=== PATIENT | female | born 1950 | race Caucasian/White ===

== ENCOUNTER 2016-07-26 22:06 | Observation (INO) | payer MEDICARE, OTHER ==
[~2016-07-26] VITALS: Ht 162.6 cm; Wt 64.6 kg
[~2016-07-26 22:06] MED LIST: DIPH25 PO; GLEE400T2 PO; LEVO100T4 PO; PARO20 PO; PRED10 PO; RANI150 PO; ZOLP5TAB3 PO
--- NOTE | 2016-07-26 22:27 | PD ---
HPI Chief Complaint: Chest Pain Time Seen by Provider: 22:24 Travel History International Travel<30 days: No Contact w/Intl Traveler<30days: No Traveled to known affect area: No History of Present Illness HPI 66-year-old female presents to the emergency department by private transportation for complaint of retrosternal chest pressure radiating into the jaw/gums shoulder back and left arm intermittently in intensity since 8 PM. Presently discomfort is 0/10 intensity; 8/10 at worst. Patient denies any history of cardiac disease. Patient does take medication for hypertension. Patient has previous dyslipidemia but is on no medications for dyslipidemia this time. Patient denies diabetes. Patient continues to smoke cigarettes. Patient has family history of cardiac disease but not reportedly premature onset. 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 [facility] Past Medical History Narrative Medical Gastrointestinal stromal tumor and liver metastasis, chemotherapy, dyslipidemia , hypertension, migraines, hypothyroidism; appendectomy cholecystectomy; alcohol use tobacco use; nursing notes reviewed Cancer: Yes (GASTRO INTESTINAL STROMAL TUMOR AND LIVER) High Cholesterol: Yes Chemotherapy: Yes Hypertension: Yes Migraines: Yes Thyroid Disease: Yes Past Surgical History Appendectomy: Yes Cholecystectomy: Yes Social History Alcohol Use: Yes Tobacco Use: Yes Substance Use: No Allergies-Medications (Allergen,Severity, Reaction): Coded Allergies: Benazepril (Verified Allergy, Severe, ANGIOEDEMA, 07/26/16) Sulfa (Verified Allergy, Severe, Anaphylaxis, 07/26/16) Reported Meds & Prescriptions Reported Meds & Active Scripts Active Reported Aspirin 81 Mg Chew 162 Mg CHEW ONCE Norvasc (Amlodipine Besylate) 10 Mg Tab 10 Mg PO DAILY Paxil (Paroxetine HCl) 20 Mg Tab 20 Mg PO DAILY Synthroid (Levothyroxine Sodium) 100 Mcg Tab 105 Mcg PO DAILY Review of Systems Except as stated in HPI: all other systems reviewed are Neg General / Constitutional: No: Fever, Chills HENT: No: Congestion Cardiovascular: Positive: Chest Pain or Discomfort Respiratory: No: Shortness of Breath Gastrointestinal: No: Vomiting, Abdominal Pain Genitourinary: No: Flank Pain Musculoskeletal: No: Myalgias, Arthralgias, Edema Skin: No Rash Neurologic: No: Weakness Psychiatric: No: Anxiety Hematologic/Lymphatic: No: Lymph Node Enlargement Physical Exam Narrative GENERAL: Well-developed well-nourished female in no acute distress no respiratory distress SKIN: Warm and dry. HEAD: Normocephalic. EYES: No scleral icterus. No injection or drainage. NECK: Supple, trachea midline. No JVD or lymphadenopathy. CARDIOVASCULAR: Regular rate and rhythm without murmurs, gallops, or rubs. Chest wall: Nontender to direct palpation RESPIRATORY: Breath sounds equal bilaterally. No accessory muscle use. GASTROINTESTINAL: Abdomen soft, non-tender, nondistended. MUSCULOSKELETAL: No cyanosis, or edema. Bilateral radial and dorsalis pedis pulses 2+ to palpation BACK: Nontender without obvious deformity. No CVA tenderness. Data Data Last Documented VS Vital Signs Date Time Temp Pulse Resp B/P Pulse Ox O2 Delivery O2 Flow Rate FiO2 07/26/16 22:58 74 20 129/57 98 Nasal Cannula 1 Orders Electrocardiogram (07/26/16 22:24) Ckmb (Isoenzyme) Profile (07/26/16 22:24) Complete Blood Count With Diff (07/26/16 22:24) Comprehensive Metabolic Panel (07/26/16 22:24) Magnesium (Mg) (07/26/16 22:24) Prothrombin Time / Inr (Pt) (07/26/16 22:24) Act Partial Throm Time (Ptt) (07/26/16 22:24) Troponin I (07/26/16 22:24) Lipase (07/26/16 22:24) Chest, Single Ap (07/26/16 22:24) Ecg Monitoring (07/26/16 22:24) Bilateral Bp Monitoring (07/26/16 22:24) Iv Access Insert/Monitor (07/26/16 22:24) Oximetry (07/26/16 22:24) Oxygen Administration (07/26/16 22:24) Aspirin Chew (Aspirin Chew) (07/26/16 22:30) Sodium Chloride 0.9% Flush (Ns Flush) (07/26/16 22:30) Nitroglycerin Sl (Nitrostat Sl) (07/26/16 22:30) Sodium Chlor 0.9% 1000 Ml Inj (Ns 1000 M (07/26/16 22:30) Ct Pulmonary Angiogram (07/26/16 ) Iohexol 350 Inj (Omnipaque 350 Inj) (07/26/16 23:59) Labs Laboratory Tests Test 07/26/16 22:25 White Blood Count 11.6 TH/MM3 Red Blood Count 4.02 MIL/MM3 Hemoglobin 12.1 GM/DL Hematocrit 36.1 % Mean Corpuscular Volume 89.6 FL Mean Corpuscular Hemoglobin 30.1 PG Mean Corpuscular Hemoglobin 33.5 % Concent Red Cell Distribution Width 13.2 % Platelet Count 396 TH/MM3 Mean Platelet Volume 7.7 FL Neutrophils (%) (Auto) 67.0 % Lymphocytes (%) (Auto) 16.6 % Monocytes (%) (Auto) 10.0 % Eosinophils (%) (Auto) 6.1 % Basophils (%) (Auto) 0.3 % Neutrophils # (Auto) 7.8 TH/MM3 Lymphocytes # (Auto) 1.9 TH/MM3 Monocytes # (Auto) 1.2 TH/MM3 Eosinophils # (Auto) 0.7 TH/MM3 Basophils # (Auto) 0.0 TH/MM3 CBC Comment DIFF FINAL Differential Comment Prothrombin Time 10.7 SEC Prothromb Time International 1.0 RATIO Ratio Activated Partial 29.0 SEC Thromboplast Time Sodium Level 142 MEQ/L Potassium Level 3.9 MEQ/L Chloride Level 104 MEQ/L Carbon Dioxide Level 28.6 MEQ/L Anion Gap 9 MEQ/L Blood Urea Nitrogen 22 MG/DL Creatinine 1.20 MG/DL Estimat Glomerular Filtration 45 ML/MIN Rate Random Glucose 126 MG/DL Calcium Level 8.5 MG/DL Magnesium Level 2.0 MG/DL Total Bilirubin 0.2 MG/DL Aspartate Amino Transf 33 U/L (AST/SGOT) Alanine Aminotransferase 31 U/L (ALT/SGPT) Alkaline Phosphatase 222 U/L Total Creatine Kinase 44 U/L Troponin I 0.02 NG/ML Total Protein 7.0 GM/DL Albumin 2.5 GM/DL Lipase 195 U/L [facility] Medical Decision Making Medical Screen Exam Complete: Yes Emergency Medical Condition: Yes Medical Record Reviewed: Yes Interpretation(s) cxr: nad ekg: Normal sinus rhythm rate [address] elevation nonspecific septal T wave changes mild inversion V1 V2 Laboratory Tests Test 07/26/16 22:25 White Blood Count 11.6 TH/MM3 Red Blood Count 4.02 MIL/MM3 Hemoglobin 12.1 GM/DL Hematocrit 36.1 % Mean Corpuscular Volume 89.6 FL Mean Corpuscular Hemoglobin 30.1 PG Mean Corpuscular Hemoglobin 33.5 % Concent Red Cell Distribution Width 13.2 % Platelet Count 396 TH/MM3 Mean Platelet Volume 7.7 FL Neutrophils (%) (Auto) 67.0 % Lymphocytes (%) (Auto) 16.6 % Monocytes (%) (Auto) 10.0 % Eosinophils (%) (Auto) 6.1 % Basophils (%) (Auto) 0.3 % Neutrophils # (Auto) 7.8 TH/MM3 Lymphocytes # (Auto) 1.9 TH/MM3 Monocytes # (Auto) 1.2 TH/MM3 Eosinophils # (Auto) 0.7 TH/MM3 Basophils # (Auto) 0.0 TH/MM3 CBC Comment DIFF FINAL Differential Comment Prothrombin Time 10.7 SEC Prothromb Time International 1.0 RATIO Ratio Activated Partial 29.0 SEC Thromboplast Time Sodium Level 142 MEQ/L Potassium Level 3.9 MEQ/L Chloride Level 104 MEQ/L Carbon Dioxide Level 28.6 MEQ/L Anion Gap 9 MEQ/L Blood Urea Nitrogen 22 MG/DL Creatinine 1.20 MG/DL Estimat Glomerular Filtration 45 ML/MIN Rate Random Glucose 126 MG/DL Calcium Level 8.5 MG/DL Magnesium Level 2.0 MG/DL Total Bilirubin 0.2 MG/DL Aspartate Amino Transf 33 U/L (AST/SGOT) Alanine Aminotransferase 31 U/L (ALT/SGPT) Alkaline Phosphatase 222 U/L Total Creatine Kinase 44 U/L Troponin I 0.02 NG/ML Total Protein 7.0 GM/DL Albumin 2.5 GM/DL Lipase 195 U/L CT pulmonary angiogram: CONCLUSION: 1. Severe emphysema without infiltrate. 2. Left basilar atelectasis/scarring. 3. No evidence for pulmonary embolism. 4. Multiple masses throughout the liver concerning for metastatic disease. Nonemergent contrasted CT of the abdomen/pelvis recommended. Dano Sutton MD on July 27, 2016 at 0:11 Board Certified Radiologist. This report was verified electronically. Differential Diagnosis Chest pain, ACS, myocardial infarction, PE, esophageal spasm, peptic ulcer disease, biliary colic, also to consider hypertensive urgency, dissection, aneurysm, musculoskeletal pain Narrative Course Patient placed on manager monitoring IV access obtained EKG performed which reveals no acute ST elevation or injury pattern change; patient administered aspirin 162 mg by mouth as well as sublingual nitroglycerin Patient voicing no complaint of chest pain at this time Patient aware of lab results and states he had chest pain return as severe as 8/ 10 intensity but currently again 0/10 in intensity; patient recommendation for CT pulmonary angiogram as new onset CP after road travel and off chemotherpy regimen since 05/2016with observation admission for chest pain center protocol if study is negative. CT pulmonary angiogram negative for PE shows evidence of changes consistent with COPD and metastatic disease to the liver with recommendation for outpatient imaging of the liver for metastatic disease which patient has artery aware of this diagnosis; patient is agreeable to observation stay for chest pain center protocol call placed to medicine service. Cardiac risk: female age 66, tobacco use, htn, dyslipidemia; also family history cad-mother age 70 ; patient is not diabetic Procedures EKG Prior to Arrival: No Physician Communication Physician Communication call placed to [facility] service --discussed with for [facility] Diagnosis Primary Impression: Chest pain Qualified Code: R07.2 - Precordial pain Admitting Information Admitting Physician Requests: Observation Courtney Ramirez MD Jul 26, 2016 22:27
[2016-07-26] MEDS ORDERED: ASPIRIN 81 MG CHEW TAB PO ONE (22:30)
[2016-07-26] MEDS ORDERED: SODIUM CHLORIDE 0.9% FLUSH 5 ML FLUSH IVF PRN (22:30)
[2016-07-26] MEDS ORDERED: SODIUM CHLOR 0.9% 1000 ML INJ 1,000 ML IV SCH (22:30)
[2016-07-26] MEDS: NITROGLYCERIN 0.4 MG SL 25 TABS/BTL SL SCH ×3 (22:38→23:01)
--- NOTE | 2016-07-26 22:39 | RADHPO ---
EXAM DATE/TIME: 07/26/2016 22:26 [facility] COMPARISON: No previous studies available for comparison. INDICATIONS : Chest discomfort and pressure. MEDICAL HISTORY : None. SURGICAL HISTORY : None. ENCOUNTER: Initial ACUITY: 1 day PAIN SCORE: 07/26 LOCATION: Bilateral chest FINDINGS: Hyperinflation without consolidation or effusion. Aortic calcification. Heart size normal. Attenuated lung markings are present. CONCLUSION: No acute disease. Quentin Pisano MD on July 26, 2016 at 22:37 Board Certified Radiologist. This report was verified electronically.
[2016-07-26 22:40] LABS: AUTOMATED NEUTROPHIL # 7.8 TH/MM3 (1.8-7.7); BASOPHIL % 0.3 % (0.0-2.0); EOSINOPHIL # 0.7 TH/MM3 (0-0.4); EOSINOPHIL % 6.1 % (0.0-4.0); HEMATOCRIT 36.1 % (35.0-46.0); HEMO FLAGS DIFF FINAL; LYMPH % 16.6 % (9.0-44.0); LYMPHOCYTE # 1.9 TH/MM3 (1.0-4.8); MEAN CELL VOLUME 89.6 FL (80.0-100.0); MEAN CORPUSCULAR HEMOGLOBIN 30.1 PG (27.0-34.0); MEAN CORPUSCULAR HGB CONC 33.5 % (32.0-36.0); PLATELET COUNT 396 TH/MM3 (150-450); RED BLOOD COUNT 4.02 MIL/MM3 (4.00-5.30); RED CELL DISTRIBUTION WIDTH 13.2 % (11.6-17.2); WHITE BLOOD COUNT 11.6 TH/MM3 (4.0-11.0)
[2016-07-26 22:41] VITALS: BP_SYST 170; BP_SYST 183; BP_SYST 194; BP_DIAS 73; BP_DIAS 80; BP_DIAS 84; PULSE 83; PULSE 84; RESP 20; O2SAT 96; O2SAT 97
[2016-07-26 22:49] LABS: CHLORIDE 104 MEQ/L (98-107); POTASSIUM 3.9 MEQ/L (3.5-5.1); SODIUM (NA) 142 MEQ/L (136-145)
[2016-07-26 22:54] LABS: ANION GAP 9 MEQ/L (5-15); BICARBONATE 28.6 MEQ/L (21.0-32.0); BLOOD UREA NITROGEN 22 MG/DL (7-18); PROTHROMBIN TIME - PATIENT 10.7 SEC (9.8-11.6)
[2016-07-26 22:56] LABS: ALT (GPT) 31 U/L (10-53); AST (GOT) 33 U/L (15-37); GLOMERULAR FILTRATION RATE 45 ML/MIN (>89)
[2016-07-26 22:58] VITALS: BP 129/57; PULSE 74; RESP 20; O2SAT 98
[2016-07-26 22:58] LABS: TOTAL BILIRUBIN ADULT 0.2 MG/DL (0.2-1.0)
[2016-07-26 22:59] LABS: ALKALINE PHOSPHATASE 222 U/L (45-117)
[2016-07-26] MEDS ORDERED: PAXI20TA PO (23:06)
[2016-07-26] MEDS ORDERED: AMLO10 PO (23:06)
[2016-07-26] MEDS ORDERED: ASPI81CH CHEW (23:06)
[2016-07-26] MEDS ORDERED: LEVO.1 PO (23:06)
[2016-07-26 23:17] LABS: CREATINE KINASE 44 U/L (26-192)
[2016-07-26] MEDS ORDERED: IOHEXOL 350 MG/ML 10 ML VIAL (for RAD DIAG) IV ONE (23:59)
[2016-07-27] VITALS (8 sets, daily range): BP systolic 152–187; BP diastolic 40–89; PULSE 62–77; RESP 20; TEMP 96.4–97.5; O2SAT 94–98
--- NOTE | 2016-07-27 00:16 | RADHPO ---
EXAM DATE/TIME: 07/26/2016 23:54 [facility] COMPARISON: No previous studies available for comparison. INDICATIONS : Retrosternal chest pressure. Evaluate for pulmonary embolism. IV CONTRAST: 75 cc Omnipaque 350 (iohexol) IV RADIATION DOSE: 8.14 CTDIvol (mGy) MEDICAL HISTORY : Hypertension. Carcinoma, gastric. Metastatic, liver. SURGICAL HISTORY : Appendectomy. Cholecystectomy. ENCOUNTER: Initial ACUITY: 1 day PAIN SCALE: 1/10 LOCATION: chest retrosternal. TECHNIQUE: Volumetric scanning of the chest was performed using a pulmonary embolism protocol MIP images were re constructed. Using automated exposure control and adjustment of the mA and/or kV according to patien t size, radiation dose was kept as low as reasonably achievable to obtain optimal diagnostic quality images. FINDINGS: PULMONARY ARTERIES: No filling defects are seen in the pulmonary arteries through the segmental level. LUNGS: There is no consolidation or pneumothorax . No concerning pulmonary nodule is visualized. Severe emp hysema. Minimal density left lower lobe, likely atelectasis/scarring. PLEURAE: There is no pleural thickening or pleural effusion. MEDIASTINUM: There is good visualization of the great vessels of the middle mediastinum. No evidence of mediastin al or hilar adenopathy/mass. MUSCULOSKELETAL: Within normal limits for patient age. MISCELLANEOUS: The visualized upper abdominal organs demonstrate multiple low-density liver lesions. Mild prominence left adrenal gland. CONCLUSION: 1. Severe emphysema without infiltrate. 2. Left basilar atelectasis/scarring. 3. No evidence for pulmonary embolism. 4. Multiple masses throughout the liver concerning for metastatic disease. Nonemergent contrasted CT of the abdomen/pelvis recommended. Dano Sutton MD on July 27, 2016 at 0:11 Board Certified Radiologist. This report was verified electronically.
[2016-07-27] MEDS ORDERED: SODIUM CHLORIDE 0.9% FLUSH 5 ML FLUSH IVF PRN ×2 (01:15)
[2016-07-27] MEDS ORDERED: SODIUM CHLORIDE 0.9% FLUSH 5 ML FLUSH IVF SCH ×2 (09:00)
--- NOTE | 2016-07-27 11:11 | EKG ---
Date Performed: 07/27/2016 Time Performed: 04:25:12 PTAGE: 66 years EKG: Sinus rhythm with PAC(s) Borderline ECG PREVIOUS TRACING : 07/27/2016 01.11 Compared to prior tracing no significant change DOCTOR: Tono Sierra Interpretating Date/Time 07/27/2016 11:09:19
--- NOTE | 2016-07-27 11:21 | EKG ---
Date Performed: 07/27/2016 Time Performed: 01:11:10 PTAGE: 66 years EKG: Sinus rhythm with PAC(s). Prolonged QT interval Inferior/lateral T wave changes are nonspecific Borderline ECG PREVIOUS TRACING : 07/26/2016 22.04 Compared to prior tracing no significant change DOCTOR: Tono Sierra Interpretating Date/Time 07/27/2016 11:19:35
[2016-07-27] MEDS ORDERED: REGADENOSON INJ 0.4 MG/5 ML SYR IV ONE (12:36)
--- NOTE | 2016-07-27 13:10 | TR ---
Date Performed: 07/27/2016 Time Performed: 12:38:02 DOCTOR: Kraig Gauthier DRUG LIST: CLINICAL HISTORY: CHEST PAIN REASON FOR TEST: Chest pain. REASON FOR ENDING: OBSERVATION: CONCLUSION: Lexiscan stress test was performed under standard four minute protocol. Radionuclid e was injected one minute prior to ending the test. No electrocardiographic abormalities were present to suggest ischemia. Nuclear imaging and interpretation are pending. COMMENTS:
--- NOTE | 2016-07-27 13:38 | RADHPO ---
EXAM DATE/TIME: 07/27/2016 12:34 [facility] COMPARISON: No previous studies available for comparison. INDICATIONS : Retrosternal chest pain radiating to jaw and left arm. Angina. DOSE: 25.5 mCi Tc99m Myoview at stress. 8.7 mCi Tc99m Myoview at rest. 0.4 mg Lexiscan STRESS SYMPTOMS: None. EJECTION FRACTION: 49% MEDICAL HISTORY: Hypertension. Gastro intestinal stromal tumor. SURGICAL HISTORY: Appendectomy. Cholecystectomy. ENCOUNTER: Initial ACUITY: 1 day PAIN SCALE: 8/10 LOCATION: Retrosternal chest TECHNIQUE: The patient underwent pharmacologic stress with infusion of prescribed dose. Continuous ECG tracing was monitored during stress. Gated SPECT imaging was performed after stress and conventional SPECT i maging was performed at rest. The examination was performed on a SPECT/CT scanner, both attenuation and non-corrected datasets were reviewed. FINDINGS: The gated Cine loop images demonstrate mild septal hypokinesis. The left ventricular ejection fracti on is calculated at 49%. The cardiac SPECT stress and rest images demonstrate fixed defects involving the cardiac apex suggest ing LAD infarct. Clinical correlation is recommended. No reversible defect is noted to suggest isch emia. CONCLUSION: 1. Fixed defect involving the cardiac apex suggesting LAD infarct. Clinical correlation is recommen ded. 2. No reversible defect to suggest ischemia. 3. Mild septal hypokinesis. 4. Left ventricular ejection fraction equaling 49%. RISK CATEGORY: Low risk (less than 1% annual mortality rate). Domingo Hunt MD on July 27, 2016 at 13:23 Board Certified Radiologist. This report was verified electronically.
--- NOTE | 2016-07-27 13:39 | HHI.HP ---
[facility] Primary Care Physician Non-Staff Admission Diagnosis Chest pain Diagnoses: (1) Chest pain Diagnosis: Principal (2) Leukocytosis Diagnosis: Principal (3) Renal failure Diagnosis: Principal Chief Complaint: chest pain Travel History International Travel<30 Days: No Contact w/Intl Traveler <30 Da: No Traveled to Known Affected Are: No History of Present Illness 66-year-old female with metastatic cancer, hypertension, and thyroid disease presents with complaint of pressure over the left chest. She states it radiated to the gums and arms and wrapped around the back. She admits to feeling of pressure and numbness in the arms. Patient states symptoms started at 745 pm last night intermittently occurring lasting a maximum of 2 minutes, but she additionally states that each of 2 nights prior, she had an episode of pain which woke her from sleep. Rated pain a 4-5/10. Pain reoccurred at 8 AM today. Patient received 3 doses of SL nitroglycerin without relief. Admits to feeling short of breath sometimes. States she felt lightheaded and dizzy this morning, but denies any headache, dizziness, blurred vision prior to arrival. Admits to occasional cough and left ear congestion, but denies these being new symptoms. Denies any diaphoresis, abdominal pain, nausea, vomiting. Review of Systems Other ROS 10 negative unless otherwise indicated in history of present illness. Past Family Social History Past Medical History Gastrointestinal stromal tumor and liver metastasis. Patient states she last took chemotherapy pills May 2016 but is supposed to restart them soon. Sister states patient just returned from [facility]. Hypertension Hypothyroidism Migraines, although patient states she only has painless visual disturbances now. Possible history of hyperlipidemia Miscarriages Past Surgical History Appendectomy Cholecystectomy Laparotomy Reported Medications Aspirin 81 Mg Chew 162 Mg CHEW ONCE Norvasc (Amlodipine Besylate) 10 Mg Tab 10 Mg PO DAILY Paxil (Paroxetine HCl) 20 Mg Tab 20 Mg PO DAILY Synthroid (Levothyroxine Sodium) 100 Mcg Tab 105 Mcg PO DAILY Allergies: Coded Allergies: Benazepril (Verified Allergy, Severe, ANGIOEDEMA, 07/26/16) Sulfa (Verified Allergy, Severe, Anaphylaxis, 07/26/16) Family History Father and mother had bowel problems. Mother had a "partial stroke". Maternal grandmother had strokes. Social History Patient admits to rarely drinking alcohol although her sister states she drinks Scotch and wine. Patient smokes one pack per day of cigarettes. Started smoking at age of 15-18. Denies illicit drug use. Physical Exam Vital Signs Vital Signs Date Time Temp Pulse Resp B/P Pulse Ox O2 Delivery O2 Flow Rate FiO2 07/27/16 12:00 97.5 68 20 161/74 94 07/27/16 08:30 96.4 77 20 185/78 94 07/27/16 06:46 76 20 187/78 96 07/27/16 04:45 64 20 186/89 96 07/27/16 03:45 62 20 174/81 97 Nasal Cannula 2 07/27/16 02:45 64 20 163/58 98 07/27/16 01:45 68 20 152/40 95 07/27/16 00:45 72 20 182/62 94 07/26/16 23:06 20 07/26/16 22:58 74 20 129/57 98 Nasal Cannula 1 07/26/16 22:58 98 Nasal Cannula 1.00 07/26/16 22:49 20 99 Nasal Cannula 2 07/26/16 22:41 84 20 170/73 96 Nasal Cannula 1 07/26/16 22:41 83 20 183/80 97 Nasal Cannula 1 194/84 07/26/16 22:41 96 1 Physical Exam GENERAL: This is a well-nourished, well-developed patient, in no apparent distress. SKIN: No rashes, ecchymoses or lesions. HEAD: Atraumatic. Normocephalic. EYES: No scleral icterus. No injection or drainage. ENT: MMM. NECK: Trachea midline. CHEST: No reproducible tenderness. CARDIOVASCULAR: Regular rate and rhythm. RESPIRATORY: Clear to auscultation. Breath sounds equal bilaterally. No wheezes , rales, or rhonchi. GASTROINTESTINAL: Abdomen nondistended. MUSCULOSKELETAL: No lower extremity edema. NEUROLOGICAL: Awake and alert. Motor grossly within normal limits. Five out of 5 muscle strength in bilateral arms and legs. Normal speech. Laboratory Laboratory Tests Test 07/26/16 07/27/16 07/27/16 07/27/16 22:25 01:35 04:30 08:54 White Blood Count 11.6 Red Blood Count 4.02 Hemoglobin 12.1 Hematocrit 36.1 Mean Corpuscular Volume 89.6 Mean Corpuscular Hemoglobin 30.1 Mean Corpuscular Hemoglobin 33.5 Concent Red Cell Distribution Width 13.2 Platelet Count 396 Mean Platelet Volume 7.7 Neutrophils (%) (Auto) 67.0 Lymphocytes (%) (Auto) 16.6 Monocytes (%) (Auto) 10.0 Eosinophils (%) (Auto) 6.1 Basophils (%) (Auto) 0.3 Neutrophils # (Auto) 7.8 Lymphocytes # (Auto) 1.9 Monocytes # (Auto) 1.2 Eosinophils # (Auto) 0.7 Basophils # (Auto) 0.0 CBC Comment DIFF FINAL Differential Comment Prothrombin Time 10.7 Prothromb Time International 1.0 Ratio Activated Partial 29.0 Thromboplast Time Sodium Level 142 Potassium Level 3.9 Chloride Level 104 Carbon Dioxide Level 28.6 Anion Gap 9 Blood Urea Nitrogen 22 Creatinine 1.20 Estimat Glomerular Filtration 45 Rate Random Glucose 126 Calcium Level 8.5 Magnesium Level 2.0 Total Bilirubin 0.2 Aspartate Amino Transf 33 (AST/SGOT) Alanine Aminotransferase 31 (ALT/SGPT) Alkaline Phosphatase 222 Total Creatine Kinase 44 36 30 Troponin I 0.02 0.03 0.04 0.03 Total Protein 7.0 Albumin 2.5 Lipase 195 Result Diagram: 07/26/16222407/26/162224 Imaging Last Impressions Chest X-Ray 07/26/162223 Signed Impressions: Service Date/Time: Tuesday, July 26, 2016 22:26 - CONCLUSION: No acute disease. Quentin Pisano MD CT Angiography 07/26/16 0000 Signed Impressions: Service Date/Time: Tuesday, July 26, 2016 23:54 - CONCLUSION: 1. Severe emphysema without infiltrate. 2. Left basilar atelectasis/scarring. 3. No evidence for pulmonary embolism. 4. Multiple masses throughout the liver concerning for metastatic disease. Nonemergent contrasted CT of the abdomen/pelvis recommended. Dano Sutton MD Assessment and Plan Assessment and Plan 66-year-old female with: Chest pain: Pressure over the chest initially started a few nights ago. Patient had recurrence last night and this morning. EKGs 3 personally interpreted with nonspecific septal T wave changes. EKG #2 and #3 with PACs. EKG #2 with prolonged QT interval, 462. Chest x-ray personally interpreted without acute disease. Troponin 4 negative. -Patient received 162 mEq of aspirin and 0.4 nitroglycerin [address] -CT pulmonary angiogram without evidence of PE although does show severe emphysema without infiltrate. There is left basilar atelectasis/scarring. There are metastatic masses throughout the liver consistent with patient's current cancer. -Lexiscan ordered and reveals fixed defect involving the cardiac apex suggesting LAD infarct. No reversible defect to suggest ischemia. Mild septal hypokinesis with EF of 49%. Low risk. Discussed with Dr. Ziegler, attending. Informed patient. Leukocytosis: Mild 11.6, likely stress reaction. Renal failure: BUN/Cr 22/1.2 with GFR 45. Patient likely has some chronic kidney disease but there are no prior labs for comparison. Patient is not aware of a history of chronic kidney disease and states it is frequently monitored due to her chemotherapy. -Continue IV NS -New BMP this afternoon reviewed with resolved PÉREZ. HTN: Continue amlodipine DVT prevention: SCDs. Discharge disposition: Home in stable condition. Diet: Heart healthy Activity: Regular Medications: Continue home medications. Will hold off on starting aspirin at home as patient is on chemotherapy, may be contraindication. She is advised to discuss this with her PCP. Follow-up: PCP Dr. Cadena 2-3 days. Copy of nuclear stress test provided to patient. Problem Qualifiers (1) Chest pain: Qualified Code: R07.2 - Precordial pain Nancy Jackson Jul 27, 2016 13:39
[2016-07-27] MEDS ORDERED: PARoxetine HCL 20 MG TAB PO SCH (14:00)
[2016-07-27 14:02] LABS: POTASSIUM 3.9 MEQ/L (3.5-5.1)
[2016-07-27 14:05] LABS: BICARBONATE 27.8 MEQ/L (21.0-32.0)
--- NOTE | 2016-07-27 14:12 | HHI.DCPOC ---
Discharge Care Plan Diagnosis: (1) Chest pain (2) Leukocytosis (3) Renal failure Your Health Problems Are: Chest Pain Goals to Promote Your Health * To prevent worsening of your condition and complications * To maintain your health at the optimal level Directions to Meet Your Goals Take your medications as prescribed Follow your dietary instruction Follow activity as directed Keep your appointments as scheduled Take your immunizations and boosters as scheduled If your symptoms worsen call your PCP, if no PCP go to Urgent Care Center or Emergency Room Smoking is Dangerous to Your Health. Avoid second hand smoke Call the 24-hour hour crisis hotline for domestic abuse at Nancy Jackson Jul 27, 2016 14:11
--- NOTE | 2016-07-27 22:34 | EKG ---
Date Performed: 07/26/2016 Time Performed: 22:04:22 PTAGE: 66 years EKG: Sinus rhythm . Septal T wave changes are nonspecific Borderline ECG NO PREVIOUS TRACING DOCTOR: Tono Sierra Interpretating Date/Time 07/27/2016 22:30:30
[2016-07-28] MEDS ORDERED: LEVOTHYROXINE SODIUM 100 MCG TAB PO SCH (06:00)
== END 2016-07-27 14:44 | disposition home or self-care (01) ==
LOC: PHED 22:06 → PHEDA 07-27 01:05 → PH3B 07-27 07:46
PROVIDERS: ADMIT Hospitalist; ATTEND Hospitalist
DX: R07.2 Precordial pain (principal); D72.829 Elevated white blood cell count, unspecified; I12.9 Hypertensive chronic kidney disease with stage 1 through stage 4 chronic kidney disease, or unspecified chronic kidney disease; N18.9 Chronic kidney disease, unspecified; I45.81 Long QT syndrome; C49.A0 Gastrointestinal stromal tumor, unspecified site; C78.7 Secondary malignant neoplasm of liver and intrahepatic bile duct; E03.9 Hypothyroidism, unspecified; E78.00 Pure hypercholesterolemia, unspecified; J43.9 Emphysema, unspecified; J98.11 Atelectasis; F17.210 Nicotine dependence, cigarettes, uncomplicated; Z82.49 Family history of ischemic heart disease and other diseases of the circulatory system
CPT/HCPCS: 71010; 71275; 78452; 80048; 80053; 82550; 83690; 83735; 84484; 85025; 85610; 85730; 93005; 93017; 96360; 96361; 99285; A9502; G0378; J2785; J7030; Q9967